=== PATIENT | male | born 1960 | race Caucasian/White ===

== ENCOUNTER 2017-12-20 05:33 | Inpatient (IN) | payer OTHER ==
[~2017-12-20] VITALS: Ht 165.1 cm; Wt 62.6 kg
[2017-12-20 08:00] VITALS: BP 118/75
[2017-12-20 09:07] VITALS: BP 118/75
[2017-12-20] MEDS ORDERED: MAG HYDROX/AL HYDROX/SIMETH 30 ML UDC PO PRN (09:30)
[2017-12-20] MEDS ORDERED: MAGNESIUM HYDROXIDE 30 ML UDC PO PRN (09:30)
[2017-12-20] MEDS ORDERED: ONDANSETRON HCL/PF 4 MG/2 ML VIAL IVP PRN (09:30)
[2017-12-20] MEDS ORDERED: LORAZEPAM INJ 2 MG/ML VIAL IV PRN (09:30)
[2017-12-20] MEDS ORDERED: MORPHINE SULFATE INJ 2 MG/ML DISP.SYRIN IV PRN (09:30)
[2017-12-20] MEDS: IV NS 0.9% 1,000 ML IV PRN (09:59)
[2017-12-20] MEDS: ACETAMINOPHEN 325 MG TABLET PO PRN ×2 (15:40→22:24)
[2017-12-20 16:00] VITALS: BP_SYST 103; BP_SYST 113; BP_DIAS 67
[2017-12-20] MEDS: PANTOPRAZOLE 40 MG VIAL IV SCH (17:54)
[2017-12-20 20:00] VITALS: BP 114/70
[2017-12-21] VITALS: BP 103/60
[2017-12-21 04:00] VITALS: BP 114/54
[2017-12-21 06:27] LABS: BASOPHILS # (AUTO) 0.1 /CMM (0.0-0.2); BASOPHILS % (AUTO) 0.9 % (0.0-2.0); EOSINOPHILS # (AUTO) 0.5 /CMM (0.0-0.7); HEMATOCRIT 35 % (39-51); LYMPHOCYTES # (AUTO) 2.1 /CMM (0.8-4.8); LYMPHOCYTES % (AUTO) 32.4 % (20.0-44.0); MEAN CORPUSCULAR HEMOGLOBIN 30 PG (26.0-33.0); MEAN CORPUSCULAR HGB CONC 34 g/dl (31.0-36.0); MEAN CORPUSCULAR VOLUME 88 fL (80-96); MONOCYTES # (AUTO) 0.4 /CMM (0.1-1.30); MONOCYTES % (AUTO) 6.4 % (2.0-12.0); NEUTROPHILS # (AUTO) 3.5 /CMM (1.8-8.9); NEUTROPHILS % (AUTO) 53.3 % (43.0-81.0); PLATELET COUNT (AUTO) 236 /CMM (150-450); RDW COEFFICIENT OF VARIATION 13.2 (11.5-15.0); RED BLOOD CELL COUNT(AUTO) 3.99 MIL/uL (4.5-6.0); WHITE BLOOD COUNT (AUTO) 6.6 K/uL (4.3-11.0)
[2017-12-21 06:38] LABS: CALCIUM, SERUM 8.3 mg/dL (8.5-10.1); CREATININE 0.8 mg/dL (0.6-1.3); MAGNESIUM 1.9 mg/dL (1.8-2.4); PHOSPHORUS 3.3 mg/dL (2.5-4.9); POTASSIUM 3.7 mmol/L (3.5-5.1)
[2017-12-21] MEDS: IV NS 0.9% 1,000 ML IV PRN (07:02)
[2017-12-21 08:00] VITALS: BP 123/68
[2017-12-21] MEDS ORDERED: ANESTHESIA TRAY IN PYXIS 1 EA TRAY MC ONE (08:36)
[2017-12-21] MEDS: PANTOPRAZOLE 40 MG VIAL IV SCH ×2 (10:30→16:10)
[2017-12-21] MEDS ORDERED: OXYMETAZOLINE HCL NASAL SPRAY 30 ML BOTTLE NS PRN (13:30)
[2017-12-21 16:00] VITALS: BP 114/69
== END 2017-12-21 18:30 | disposition left against medical advice (07) | DRG 144 ==
LOC: TELE1 07:55 → TELE 09:03 → MED 12-21 09:11
PROVIDERS: ADMIT Nurse Practitioner Acute Care; ATTEND Nurse Practitioner Acute Care
PROC: 0DB58ZX Excision of Esophagus, Via Natural or Artificial Opening Endoscopic, Diagnostic (ICD-10-PCS; principal; 2017-12-21 10:10)
PROC: 0DB68ZX Excision of Stomach, Via Natural or Artificial Opening Endoscopic, Diagnostic (ICD-10-PCS; principal; 2017-12-21 10:10)
DX: R04.2 Hemoptysis (principal); F17.210 Nicotine dependence, cigarettes, uncomplicated; R04.0 Epistaxis; Z82.49 Family history of ischemic heart disease and other diseases of the circulatory system; Z82.3 Family history of stroke; Z80.9 Family history of malignant neoplasm, unspecified; K21.9 Gastro-esophageal reflux disease without esophagitis; K29.50 Unspecified chronic gastritis without bleeding
CPT/HCPCS: 36415; 71045-TC; 80048-TC; 80061-TC; 82272-TC; 83735-TC; 84100-TC; 85025-TC; 87081-TC; 88305-TC; 88313-TC; 88342; C9113; J2704; J3490; J7030